=== PATIENT | male | born 2005 | race Caucasian/White ===

== ENCOUNTER 2024-11-04 16:53 | Emergency (ER) | payer BC, SELFPAY ==
[2024-11-04 16:57] VITALS: BP 125/80; PULSE 56; RESP 18; TEMP 36.4; O2SAT 97
--- NOTE | 2024-11-04 17:15 | DI.RAD_ITS ---
Exam(s) XR ELBOW RT COMPLETE EXAM: XR ELBOW RT COMPLETE CLINICAL HISTORY: trauma 2 weeks ago, worse with biking, olecranon. TECHNIQUE: 2D digital imaging was performed. COMPARISON: No exams were available for comparison FINDINGS: 3 views There is mild deformity of the olecranon no evidence of obvious acute fracture nor allowing soft tissue swelling and there is no object effusion. Radial head and neck appear unremarkable. There is no fracture of the coronoid process of the ulna. On the medial aspect of the joint there is an oval well-defined calcific density measuring 6 by 5 mm which does not have the appearance of an acute fracture fragment. This is in the region of the common flexor tendon. There is no osteophytic defect in the adjacent medial epicondyle. IMPRESSION: Findings as above the without an obvious acute fracture nor joint effusion in the elbow. DATA REPOSITORY: RADIATION DOSE DELIVERED:
--- NOTE | 2024-11-04 17:23 | ED.GENADUL_ITS ---
Discharge Plan Disposition Patient Disposition: Home Condition: Stable Discharge Details Clinical Impression: Elbow injury Primary Care Provider: None,None ED Provider: Adore Lorenzo Home Meds and New Rx's Prescriptions: No Action No Known Home Meds Discharge Instructions Instructions: Lateral Epicondylitis (DC) Additional Instructions: You were seen in the emergency department today for evaluation after an elbow injury a few weeks ago. In our department a full physical examination performed, and had an x-ray that did not show any sign of fracture. You do have some calcifications in one of your tendons concerning for tendinitis, commonly known as tennis elbow. You were provided with a brace to support your elbow which you can wear as needed while exerting yourself or doing repetitive motion tasks. Please use therapeutic dosing of Tylenol (acetaminophen) & Advil (ibuprofen) in an alternating fashion as follows: Take 1000mg of Tylenol every 6 hours without missing doses- that is 4 times per day. Prison in between the Tylenol doses, take 600mg of Advil also on a 6 hour schedule, that is also 4 times per day. With this strategy, you will be taking something for fever/pain as often as every 3 hours. The daily maximum dosing of Tylenol is 4000mg, and the daily maximum dosing of Advil is 2400mg. Please note that some common cold medications & prescription pain medications may contain acetaminophen and you need to read OTC drug labels and factor that in to maximum daily doses I provided a referral to establish with a primary care provider, please contact them to make an appointment. Thank you for allowing us to be part of your care. HPI General Mode of arrival: ambulatory . Date/Time Provider Initiated Documentation: 11/04/24 17:00 . Limitations to Documentation: no limitations . Information obtained by: patient and old records reviewed . HPI Narrative: This is a 19-year-old male patient without significant past medical history other than a history of a right triceps tendon rupture status post operative repair, presenting for evaluation of right elbow injury. The patient reports that 2 weeks ago he was camping, was sitting on a chair and fell backwards landing on his left elbow. He at that time did not think he had sustained significant injury, states that his elbow has been tender over the olecranon process, but it has been old and not worsening. He states that today he tried biking and this significantly worsened his elbow pain, prompting him to seek care. Right now at rest his pain is well-controlled, he has not had any new trauma or injury, states that he has no numbness, tingling, or weakness distal to this injury. This is an isolated event and he is otherwise in his normal state of health. Related Data Home Medications ?Medication ?Instructions ?Recorded ?Confirmed Unknown [No Known Home Meds] 05/22/17 0 11/04/24 Allergies Allergy/AdvReac Type Severity Reaction Status Date / Time red dye AdvReac STOMACH Verified 11/04/24 17:00 ACHE General Stated Complaint: Orthopedic CORRINA: 4 Exam Narrative Exam Narrative: Gen: Awake and alert, in no apparent distress HEENT: Non-icteric sclera Neck: Supple Lungs: No apparent respiratory distress, normal respiratory effort. CV: Appears well perfused Abdomen: Non-distended MSK: Moves 4 extremities without apparent limitation in ROM. The right elbow has a well-healed surgical scar, full range of motion without exacerbation of pain. He has minimal tenderness to palpation over the olecranon process, lateral and medial epicondyles. He has no forearm or distal humerus tenderness or deformities. No overlying skin changes. CSM's distal to this injury intact Skin: Visualized skin without rashes, cyanosis. Neuro: Normal Gait, no obvious focal deficits or facial asymmetry. Speaks in full, clear sentences. Psych: Appropriate for situation. Course Vital Signs Vital signs: Vital Signs Temperature 36.4 C 11/04/24 16:57 Pulse 56 L 11/04/24 16:57 Respiratory Rate 18 11/04/24 16:57 Blood Pressure 125/80 11/04/24 16:57 Pulse Oximetry 97 11/04/24 16:57 Temperature 36.4 C 11/04/24 16:57 Temperature Source Tympanic 11/04/24 16:57 Pulse 56 L 11/04/24 16:57 Respiratory Rate 18 11/04/24 16:57 Blood Pressure 125/80 11/04/24 16:57 Blood Pressure Position Sitting 11/04/24 16:57 Pulse Oximetry 97 11/04/24 16:57 Oxygen Delivery Method Room Air 11/04/24 16:57 Oxygen Flow Rate 0 11/04/24 16:57 Pain Level 3 11/04/24 16:57 Medical Decision Making This is a 19-year-old male patient presenting for evaluation of an elbow injury. Differential includes but is not limited to fracture, dislocation, contusion/hematoma, sprain/strain, tendinitis. The exam is less concerning for olecranon bursitis, neurovascular derangement, septic arthritis. We will obtain an x-ray of the affected elbow, the patient is not desiring of any medications for management of pain at this time. -I reviewed the patient's elbow x-ray, which shows no fracture or dislocation. There is a calcification in the flexor tendon, concerning for potential tendinitis. For this reason I did provide the patient with an Aircast elbow splint and counseled him on its use. The patient was referred to establish with a primary care provider to discuss this injury and any other symptoms that change, worsen, or persist. At this time, the patient has had a full medical evaluation and is safe for discharge to home. They are hemodynamically stable, ambulatory, and tolerating PO. They are understanding of the follow-up plan and return precautions. They left our facility without incident. Adore Lorenzo MD [facility] All Active Problems (Updated 11/04/24 @ 18:10 by Adore Lorenzo MD) Elbow injury (Acute) Rupture of right triceps tendon (Acute 07/15/17) Social History Smoking/Tobacco Use Status: Current-Occasional Smoking risk assessment performed?: Yes Alcohol Intake: current Alcohol Intake frequency: 3 or more drinks per day Drug use: Daily Substance use type: marijuana Housing: house Do you feel safe at home: Yes Do you feel safe in your relationship?: Yes
== END 2024-11-04 18:16 | disposition home or self-care (01) ==
PROVIDERS: Emergency Provider Emergency Medicine
DX: S59.801A Other specified injuries of right elbow, initial encounter (principal); M25.521 Pain in right elbow; W07.XXXA Fall from chair, initial encounter
CPT/HCPCS: 99283 ×2; 73080